=== PATIENT | male | born 1985 | race Caucasian/White ===

== ENCOUNTER 2018-05-11 13:24 | Emergency (ER) | payer BC, MEDICARE, MEDICAID ==
[~2018-05-11] VITALS: Ht 175.3 cm; Wt 123.5 kg
[~2018-05-11 13:24] MED LIST: QUET50TA PO
[2018-05-11 13:26] VITALS: BP 129/66
--- NOTE | 2018-05-11 13:34 | NUR ---
IMELDA BLOUNT INFORMED OF PT S/S NO STROKE SYMPTOMS, POSSIBLE BELLS PALSY
[2018-05-11] MEDS ORDERED: PRED20TA PO (15:03)
== END 2018-05-11 15:25 | disposition home or self-care (01) ==
LOC: ER 13:24
DX: G51.0 Bell's palsy (principal); Z91.013 Allergy to seafood; Z79.899 Other long term (current) drug therapy
CPT/HCPCS: 99283

== ENCOUNTER 2018-05-31 07:34 | Emergency (ER) | payer BC, MEDICARE, MEDICAID ==
[~2018-05-31] VITALS: Ht 175.3 cm; Wt 121.0 kg
[2018-05-31] MEDS ORDERED: normal saline 1000ML IV soln IVB ONE ×2 (07:50→10:00)
[2018-05-31] MEDS ORDERED: morphine 4 MG/ML inj SYRINge IV PRN (07:50)
[2018-05-31] MEDS ORDERED: ondansetron/PF 4mg/2ml inj IV ONE (07:50)
[2018-05-31] MEDS ORDERED: LORazepam 2 mg/ml vial IV ONE ×2 (08:05→10:00)
[2018-05-31] MEDS ORDERED: meclizine 12.5mg tablet PO ONE (08:05)
[2018-05-31 08:10] LABS: BASOPHILS # (AUTO) 0.1 X10'3 (0-0.2); BASOPHILS % (AUTO) 0.4 % (0-1); EOSINOPHILS % (AUTO) 0.3 % (0-6); HEMATOCRIT 45.5 % (42.0-52.0); HEMOGLOBIN 15.3 g/dl (14.0-17.9); LYMPHOCYTES # (AUTO) 1.5 X10'3 (1.1-4.8); LYMPHOCYTES % (AUTO) 12.1 % (21-51); MEAN CORPUSCULAR HEMOGLOBIN 28.2 PG (27.0-31.0); MEAN CORPUSCULAR HGB CONC 33.6 g/dL (33.0-36.5); MEAN CORPUSCULAR VOLUME 83.8 FL (78-98); MEAN PLATELET VOLUME 8.1 FL (7.4-10.4); MONOCYTES # (AUTO) 0.7 X10'3 (0-0.9); MONOCYTES % (AUTO) 5.6 % (2-12); NEUTROPHILS # (AUTO) 10.1 X10'3 (1.8-7.7); NEUTROPHILS % (AUTO) 81.6 % (42-75); PLATELET COUNT 348 X10'3 (140-440); RED BLOOD COUNT 5.42 X10'6 (4.70-6.10); RED CELL DISTRIBUTION WIDTH 14.4 % (11.5-14.5); WHITE BLOOD COUNT 12.4 X10'3 (4.5-11.0)
[2018-05-31 08:37] LABS: ALANINE AMINOTRANSFERASE 47 U/L (12-78); ALBUMIN 4.4 G/DL (3.4-5.0); ALBUMIN/GLOBULIN RATIO 1.1 (1.1-1.5); ALKALINE PHOSPHATASE 81 IU/L (46-116); ANION GAP 11 (8-16); ASPARTATE AMINO TRANSFERASE 19 U/L (10-37); BILIRUBIN,TOTAL 0.9 MG/DL (0.1-1.0); BLOOD UREA NITROGEN 13 MG/DL (7-18); BUN/CREATININE RATIO 11.9 (5.4-32.0); CALCIUM 9.8 MG/DL (8.5-10.1); CHLORIDE 105 MMOL/L (99-107); CREATININE 1.09 MG/DL (0.60-1.10); GLUCOSE 150 MG/DL (70-104); LIPASE 146 U/L (73-393); POTASSIUM 3.8 MMOL/L (3.5-5.1); PROTHROMBIN TIME 10.2 SECONDS (9.0-12.0); SODIUM 141 MMOL/L (135-145); TOTAL CARBON DIOXIDE 24.9 MMOL/L (24-32); TOTAL PROTEIN 8.3 G/DL (6.4-8.2); eGFR 77 ML/MIN
[2018-05-31] MEDS ORDERED: ONDA4TAB12 PO (09:18)
[2018-05-31] MEDS ORDERED: MECL12.584 PO (09:18)
[2018-05-31] MEDS ORDERED: proCHLORperazine 10 MG/2 ml inj IV ONE (09:35)
--- NOTE | 2018-05-31 10:26 | NUR ---
PT NOT READY FOR DC DUE TO VOMITING AND DRY HEAVING, AWARE, ORDERS RECEIVED AND ADMINISTERED. PT RESTING ON GURNEY WITH EYES CLOSED.
[2018-05-31 10:30] LABS: CLARITY,URINE CLEAR (Clear); COLOR,URINE YELLOW (Yellow); GLUCOSE, URINE NEGATIVE (Neg); KETONES,URINE 15 mg/dl (Neg); LEUKOCYTE ESTERASE ,URINE NEGATIVE (Neg); NITRITES, URINE NEGATIVE (Neg); OCCULT BLOOD,URINE NEGATIVE (Neg); PROTEIN,URINE TRACE mg/dl (Neg); UROBILINOGEN,URINE 0.2 E.U/dL (0.2-1.0)
[2018-05-31 10:34] LABS: UA COLLECTION TYPE URINAL
[2018-05-31 10:38] LABS: BACTERIA,URINE NONE SEEN /HPF (Neg); RBC,URINE NONE SEEN /HPF (0-2); SQUAMOUS EPITHELIAL CELL,UR NONE SEEN /LPF (FEW); WBC,URINE NONE SEEN /HPF (0-4)
[2018-05-31 11:29] VITALS: BP 110/72
--- NOTE | 2018-05-31 11:30 | NUR ---
PT RESTING, EYES CLOSED, NO S/S DISTRESS OR N/V
--- NOTE | 2018-05-31 12:31 | NUR ---
PT'S RIDE ARRIVES TO ROOM. PT FEELING BETTER AND READY TO GO HOME.
== END 2018-05-31 12:33 | disposition home or self-care (01) ==
LOC: ER 07:35
DX: R42 Dizziness and giddiness (principal); R11.2 Nausea with vomiting, unspecified; Z91.013 Allergy to seafood; Z79.899 Other long term (current) drug therapy
CPT/HCPCS: 36415; 80053; 80178; 81001; 83690; 85025; 85610; 96361; 96374; 96375; 96376; 99284; J0780; J2060; J2405; J7030; J8597

== ENCOUNTER 2018-09-14 02:23 | Emergency (ER) | payer BC, MEDICARE, MEDICAID ==
[~2018-09-14] VITALS: Ht 175.3 cm; Wt 125.0 kg
[~2018-09-14 02:23] MED LIST changes: +MECL12.584 PO; +ONDA4TAB12 PO
[2018-09-14] MEDS ORDERED: NEOM10DR45 OT (03:43)
[2018-09-14 03:51] VITALS: BP 123/64
== END 2018-09-14 03:53 | disposition home or self-care (01) ==
LOC: ER 02:24
DX: H60.91 Unspecified otitis externa, right ear (principal); F12.90 Cannabis use, unspecified, uncomplicated; Z91.013 Allergy to seafood; Z79.899 Other long term (current) drug therapy
CPT/HCPCS: 99283

== ENCOUNTER 2018-10-06 19:18 | Emergency (ER) | payer BC, MEDICARE, MEDICAID ==
[~2018-10-06] VITALS: Ht 175.3 cm; Wt 129.0 kg
[~2018-10-06 19:18] MED LIST changes: +NEOM10DR45 OT
[2018-10-06 19:25] VITALS: BP 136/76
[2018-10-06] MEDS ORDERED: DOXY100C43 PO (20:17)
== END 2018-10-06 20:29 | disposition home or self-care (01) ==
LOC: ER 19:19
DX: L98.9 Disorder of the skin and subcutaneous tissue, unspecified (principal); R21 Rash and other nonspecific skin eruption; F31.9 Bipolar disorder, unspecified; F12.90 Cannabis use, unspecified, uncomplicated; Z91.013 Allergy to seafood; Z79.899 Other long term (current) drug therapy
CPT/HCPCS: 99283

== ENCOUNTER 2019-01-02 12:05 | Emergency (ER) | payer BC, MEDICARE, MEDICAID ==
[~2019-01-02] VITALS: Ht 175.3 cm; Wt 127.2 kg
[~2019-01-02 12:05] MED LIST changes: -NEOM10DR45 OT
[2019-01-02 16:37] VITALS: BP 117/77
[2019-01-02] MEDS ORDERED: IBUP-1984 PO (16:37)
[2019-01-02] MEDS ORDERED: DOXY100C43 PO (16:37)
[2019-01-02] MEDS ORDERED: CefTRIAXone 250MG IM Kit w/LIDOcaine IM ONE (16:40)
== END 2019-01-02 17:16 | disposition home or self-care (01) ==
LOC: ER 12:06
DX: N50.811 Right testicular pain (principal); F31.9 Bipolar disorder, unspecified; F12.90 Cannabis use, unspecified, uncomplicated; Z91.013 Allergy to seafood; Z79.899 Other long term (current) drug therapy
CPT/HCPCS: 76870; 96372; 99284; J0696

== ENCOUNTER 2019-07-22 18:34 | Emergency (ER) | payer BC, MEDICARE, MEDICAID ==
[~2019-07-22] VITALS: Ht 175.3 cm; Wt 125.0 kg
[~2019-07-22 18:34] MED LIST changes: +MECL-184 PO; -MECL12.584 PO
[2019-07-22] MEDS ORDERED: LIDOcaine Viscous 15ml cup MM STA (18:55)
[2019-07-22] MEDS ORDERED: acetaminophen 325mg tablet PO ONE (18:55)
[2019-07-22] MEDS ORDERED: PENI500T2 PO (19:01)
[2019-07-22 19:11] VITALS: BP 146/97
== END 2019-07-22 19:13 | disposition home or self-care (01) ==
LOC: ER 18:35
DX: J02.9 Acute pharyngitis, unspecified (principal); F41.9 Anxiety disorder, unspecified; F32.9 Major depressive disorder, single episode, unspecified; F12.90 Cannabis use, unspecified, uncomplicated; Z88.8 Allergy status to other drugs, medicaments and biological substances; Z79.899 Other long term (current) drug therapy
CPT/HCPCS: 87880; 99283

== ENCOUNTER 2019-07-24 04:51 | Emergency (ER) | payer BC, MEDICARE, MEDICAID ==
[~2019-07-24] VITALS: Ht 175.3 cm; Wt 127.3 kg
[~2019-07-24 04:51] MED LIST changes: +PENI500T2 PO
[2019-07-24] MEDS ORDERED: dexamethasone 0.5 mg/5ml unit-dose oral solution PO STA (05:25)
[2019-07-24] MEDS ORDERED: ondansetron 4mg rapidly disintigrating tab PO ONE (05:25)
[2019-07-24] MEDS ORDERED: amoxicillin 250MG/5ML oral suspension 80ML PO ONE (05:25)
[2019-07-24] MEDS ORDERED: dexamethasone sod phosphate 10mg/ml inj PO STA (05:28)
[2019-07-24] MEDS ORDERED: AMO250L PO (05:29)
[2019-07-24] MEDS ORDERED: ONDA8TAB6 PO (05:29)
[2019-07-24 05:50] VITALS: BP 133/79
== END 2019-07-24 05:52 | disposition home or self-care (01) ==
LOC: ER 04:51
DX: J02.0 Streptococcal pharyngitis (principal); B95.5 Unspecified streptococcus as the cause of diseases classified elsewhere; R11.10 Vomiting, unspecified; F31.9 Bipolar disorder, unspecified; F12.90 Cannabis use, unspecified, uncomplicated; Z91.013 Allergy to seafood; Z79.899 Other long term (current) drug therapy
CPT/HCPCS: 99284; J1100

== ENCOUNTER 2020-01-12 19:08 | Emergency (ER) | payer MEDICARE, MEDICAID ==
[~2020-01-12] VITALS: Ht 175.3 cm; Wt 133.3 kg
[~2020-01-12 19:08] MED LIST changes: +ONDA8TAB6 PO; -PENI500T2 PO
[2020-01-12 19:12] VITALS: BP 144/74
[2020-01-12 21:49] LABS: CLARITY,URINE CLEAR (Clear); COLOR,URINE YELLOW (Yellow); GLUCOSE, URINE NEGATIVE (Neg); KETONES,URINE NEGATIVE (Neg); LEUKOCYTE ESTERASE ,URINE NEGATIVE (Neg); NITRITES, URINE NEGATIVE (Neg); OCCULT BLOOD,URINE NEGATIVE (Neg); PH,URINE 5.5 (4.8-8.0); PROTEIN,URINE NEGATIVE (Neg); UROBILINOGEN,URINE 0.2 E.U/dL (0.2-1.0)
[2020-01-12] MEDS ORDERED: ketorolac tromethamine 15mg/ml inj. IM ONE (21:50)
[2020-01-12 21:59] LABS: UA COLLECTION TYPE CLN CATCH MIDSTREAM
== END 2020-01-13 00:43 | disposition home or self-care (01) ==
LOC: ER 19:09
DX: N50.811 Right testicular pain (principal); F12.90 Cannabis use, unspecified, uncomplicated; Z91.013 Allergy to seafood
CPT/HCPCS: 74176; 76870; 81003; 93976; 96372; 99285; J1885

== ENCOUNTER 2020-02-02 08:11 | Emergency (ER) | payer MEDICARE, MEDICAID ==
[~2020-02-02] VITALS: Ht 175.3 cm; Wt 133.5 kg
[2020-02-02] MEDS ORDERED: ketorolac trometh inj. 60 MG/2 ML VIAL IM ONE (08:35)
[2020-02-02] MEDS ORDERED: HYDROcodone/acetaminophen 10/325mg tab PO ONE (08:35)
[2020-02-02] MEDS ORDERED: diphenhydrAMINE 25mg capsule PO ONE (08:45)
--- NOTE | 2020-02-02 08:55 | NUR ---
ADMIN MEDICATIONS ORDERED. US TECH IN ROOM NOW FOR PROCEDURE TEST.
[2020-02-02] MEDS ORDERED: HYDR-4353 PO (09:32)
[2020-02-02 09:49] LABS: CLARITY,URINE CLEAR (Clear); COLOR,URINE YELLOW (Yellow); GLUCOSE, URINE NEGATIVE (Neg); KETONES,URINE NEGATIVE (Neg); LEUKOCYTE ESTERASE ,URINE NEGATIVE (Neg); NITRITES, URINE NEGATIVE (Neg); OCCULT BLOOD,URINE NEGATIVE (Neg); PH,URINE 6.5 (4.8-8.0); PROTEIN,URINE NEGATIVE (Neg); UROBILINOGEN,URINE 0.2 E.U/dL (0.2-1.0)
[2020-02-02 09:52] LABS: UA COLLECTION TYPE VOIDED
== END 2020-02-02 10:04 | disposition home or self-care (01) ==
LOC: ER 08:12
DX: N50.811 Right testicular pain (principal); N50.3 Cyst of epididymis; F12.90 Cannabis use, unspecified, uncomplicated; Z91.013 Allergy to seafood
CPT/HCPCS: 76870; 81003; 93976; 96372; 99284; J1885; Q0163

== ENCOUNTER 2020-11-27 20:34 | Emergency (ER) | payer MEDICARE, MEDICAID ==
[~2020-11-27] VITALS: Ht 175.3 cm; Wt 129.5 kg
[~2020-11-27 20:34] MED LIST changes: -MECL-184 PO; +MECL-231 PO
[2020-11-27 22:10] VITALS: BP 162/109
[2020-11-27] MEDS ORDERED: dexamethasone 4mg tablet PO ONE (23:20)
[2020-11-27] MEDS ORDERED: ibuprofen tablet 400 MG TABLET PO ONE (23:20)
[2020-11-27] MEDS ORDERED: diphenhydrAMINE 25 MG/10 ML UD oral solution PO ONE (23:20)
[2020-11-27] MEDS ORDERED: DIPH-518 PO (23:33)
[2020-11-27] MEDS ORDERED: IBUP-1984 PO (23:35)
== END 2020-11-28 00:08 | disposition home or self-care (01) ==
LOC: ER 20:35
DX: J06.9 Acute upper respiratory infection, unspecified (principal); H92.01 Otalgia, right ear; F12.90 Cannabis use, unspecified, uncomplicated; Z91.013 Allergy to seafood; Z79.899 Other long term (current) drug therapy
CPT/HCPCS: 99282

== ENCOUNTER 2020-12-03 14:45 | Emergency (ER) | payer MEDICARE, MEDICAID ==
[~2020-12-03] VITALS: Ht 175.3 cm; Wt 129.6 kg
[~2020-12-03 14:45] MED LIST changes: +DIPH-518 PO; +IBUP-1984 PO
[2020-12-03 15:00] VITALS: BP 139/76
[2020-12-03] MEDS ORDERED: PENI500T2 PO (15:11)
== END 2020-12-03 15:20 | disposition home or self-care (01) ==
LOC: ER 14:47
DX: J02.9 Acute pharyngitis, unspecified (principal); H92.03 Otalgia, bilateral; R50.9 Fever, unspecified; F31.9 Bipolar disorder, unspecified; F12.90 Cannabis use, unspecified, uncomplicated; Z88.8 Allergy status to other drugs, medicaments and biological substances; Z79.2 Long term (current) use of antibiotics; Z79.899 Other long term (current) drug therapy
CPT/HCPCS: 99283

== ENCOUNTER 2021-04-30 15:11 | Emergency (ER) | payer MEDICARE, MEDICAID ==
[~2021-04-30] VITALS: Ht 175.3 cm; Wt 86.4 kg
[~2021-04-30 15:11] MED LIST changes: -IBUP-1984 PO
[2021-04-30 15:58] VITALS: BP 138/84
[2021-04-30] MEDS ORDERED: AMOX875T2 PO (17:41)
== END 2021-04-30 17:49 | disposition home or self-care (01) ==
LOC: ER 15:13
DX: H66.91 Otitis media, unspecified, right ear (principal); H92.03 Otalgia, bilateral; F31.9 Bipolar disorder, unspecified; F12.90 Cannabis use, unspecified, uncomplicated; Z88.8 Allergy status to other drugs, medicaments and biological substances; Z79.2 Long term (current) use of antibiotics; Z79.899 Other long term (current) drug therapy
CPT/HCPCS: 99283

== ENCOUNTER 2021-05-05 15:26 | Emergency (ER) | payer MEDICARE, MEDICAID ==
[~2021-05-05] VITALS: Ht 175.3 cm; Wt 86.8 kg
[~2021-05-05 15:26] MED LIST changes: +AMOX875T2 PO
[2021-05-05 15:51] VITALS: BP 156/92
[2021-05-05] MEDS ORDERED: FLUT16SP2 BOTHNARES (16:28)
[2021-05-05] MEDS ORDERED: LEVO500T90 PO (16:28)
== END 2021-05-05 16:37 | disposition home or self-care (01) ==
LOC: ER 15:27
DX: H66.91 Otitis media, unspecified, right ear (principal); H92.01 Otalgia, right ear; F31.9 Bipolar disorder, unspecified; F12.90 Cannabis use, unspecified, uncomplicated; Z88.8 Allergy status to other drugs, medicaments and biological substances; Z79.2 Long term (current) use of antibiotics; Z79.899 Other long term (current) drug therapy
CPT/HCPCS: 99283

== ENCOUNTER 2022-08-19 14:31 | Emergency (ER) | payer MEDICARE, MEDICAID ==
[~2022-08-19] VITALS: Ht 175.3 cm; Wt 120.5 kg
[~2022-08-19 14:31] MED LIST changes: +FLUT16SP2 BOTHNARES
[2022-08-19 15:18] VITALS: BP 126/84
[2022-08-19] MEDS ORDERED: OFLO5DRO5 RIGHT EAR ×3 (15:52→15:53)
[2022-08-19] MEDS ORDERED: AMOX-580 PO ×3 (15:52→15:53)
== END 2022-08-19 16:05 | disposition home or self-care (01) ==
LOC: ER 14:31
DX: H60.8X1 Other otitis externa, right ear (principal); F31.9 Bipolar disorder, unspecified; F12.10 Cannabis abuse, uncomplicated; Z79.899 Other long term (current) drug therapy; Z91.013 Allergy to seafood
CPT/HCPCS: 99283

== ENCOUNTER 2022-08-30 11:09 | Emergency (ER) | payer MEDICARE, MEDICAID ==
[~2022-08-30] VITALS: Ht 175.3 cm; Wt 118.0 kg
[~2022-08-30 11:09] MED LIST changes: +AMOX-580 PO; +OFLO5DRO5 RIGHT EAR
[2022-08-30 11:22] VITALS: BP 145/85
[2022-08-30] MEDS ORDERED: OFLO5DRO5 LEFT EAR (12:00)
[2022-08-31] MEDS ORDERED: AMOX500C2 PO (04:25)
== END 2022-08-31 07:02 | disposition home or self-care (01) ==
LOC: ER 11:09
DX: H60.92 Unspecified otitis externa, left ear (principal); F31.9 Bipolar disorder, unspecified; F12.90 Cannabis use, unspecified, uncomplicated; Z91.013 Allergy to seafood
CPT/HCPCS: 99283

== ENCOUNTER 2022-08-31 01:42 | Emergency (ER) | payer MEDICARE, MEDICAID ==
[~2022-08-31] VITALS: Ht 175.3 cm; Wt 115.0 kg
[~2022-08-31 01:42] MED LIST changes: +OFLO5DRO5 LEFT EAR
[2022-08-31 01:49] VITALS: BP 154/94
[2022-08-31] MEDS ORDERED: acetaminophen 325mg tablet PO ONE (04:25)
[2022-08-31] MEDS ORDERED: AMOX500C2 PO (04:25)
[2022-08-31] MEDS ORDERED: amoxicillin 250mg capsule PO ONE (04:25)
--- NOTE | 2022-08-31 04:35 | NUR ---
po meds x2 given
== END 2022-08-31 04:36 | disposition home or self-care (01) ==
LOC: ER 01:43
DX: H60.8X2 Other otitis externa, left ear (principal); F31.9 Bipolar disorder, unspecified; Z91.018 Allergy to other foods; Z79.899 Other long term (current) drug therapy
CPT/HCPCS: 99283

== ENCOUNTER 2023-04-12 09:43 | Emergency (ER) | payer MEDICARE, MEDICAID ==
[~2023-04-12] VITALS: Ht 175.3 cm; Wt 129.1 kg
[2023-04-12 10:17] LABS: BASOPHILS # (AUTO) 0.1 X10'3 (0-0.2); EOSINOPHILS # (AUTO) 0.3 X10'3 (0-0.9); EOSINOPHILS % (AUTO) 3.2 % (0-6); HEMATOCRIT 50.7 % (42.0-52.0); HEMOGLOBIN 16.8 g/dl (14.0-17.9); LYMPHOCYTES # (AUTO) 1.5 X10'3 (1.1-4.8); MEAN CORPUSCULAR HEMOGLOBIN 30.8 PG (27.0-31.0); MEAN CORPUSCULAR HGB CONC 33.2 g/dL (33.0-36.5); MEAN CORPUSCULAR VOLUME 92.9 FL (78-98); MEAN PLATELET VOLUME 8.4 FL (7.4-10.4); MONOCYTES # (AUTO) 0.5 X10'3 (0-0.9); MONOCYTES % (AUTO) 6.1 % (2-12); NEUTROPHILS # (AUTO) 6.5 X10'3 (1.8-7.7); NEUTROPHILS % (AUTO) 72.7 % (42-75); PLATELET COUNT 259 X10'3 (140-440); RED BLOOD COUNT 5.45 X10'6 (4.70-6.10); RED CELL DISTRIBUTION WIDTH 14.6 % (11.5-14.5); WHITE BLOOD COUNT 8.9 X10'3 (4.5-11.0)
[2023-04-12 10:25] LABS: BILIRUBIN,URINE NEGATIVE (Neg); CLARITY,URINE CLEAR (Clear); COLOR,URINE YELLOW (Yellow); GLUCOSE, URINE NEGATIVE (Neg); KETONES,URINE NEGATIVE (Neg); LEUKOCYTE ESTERASE ,URINE NEGATIVE (Neg); NITRITES, URINE NEGATIVE (Neg); OCCULT BLOOD,URINE NEGATIVE (Neg); PH,URINE 6.5 (4.8-8.0); PROTEIN,URINE NEGATIVE (Neg); UROBILINOGEN,URINE 0.2 E.U/dL (0.2-1.0)
[2023-04-12 10:31] LABS: UA COLLECTION TYPE CLN CATCH MIDSTREAM
[2023-04-12 10:58] LABS: ALANINE AMINOTRANSFERASE 73 U/L (12-78); ALBUMIN 3.7 G/DL (3.4-5.0); ALKALINE PHOSPHATASE 76 IU/L (46-116); ANION GAP 7 (8-16); ASPARTATE AMINO TRANSFERASE 26 U/L (10-37); BILIRUBIN,TOTAL 1.1 MG/DL (0.1-1.0); BLOOD UREA NITROGEN 8 MG/DL (7-18); CALCIUM 8.7 MG/DL (8.5-10.1); CHLORIDE 102 MMOL/L (99-107); CREATININE 1.15 MG/DL (0.60-1.10); GLUCOSE 179 MG/DL (70-104); LIPASE 47 U/L (16-77); POTASSIUM 4.2 MMOL/L (3.5-5.1); SODIUM 139 MMOL/L (135-145); TOTAL CARBON DIOXIDE 29.8 MMOL/L (24-32); TOTAL PROTEIN 7.5 G/DL (6.4-8.2); eCRCL 86 ML/MIN; eGFR 71 ML/MIN
[2023-04-12] MEDS: ketorolac trometh inj. 60 MG/2 ML VIAL IM ONE (11:37)
[2023-04-12] MEDS ORDERED: LIDO700A32 TOP (11:47)
[2023-04-12] MEDS ORDERED: CYCL-1 PO (11:47)
[2023-04-12 12:07] VITALS: BP 107/71; PULSE 83; RESP 16; TEMP 98.6; O2SAT 93
== END 2023-04-12 12:10 | disposition home or self-care (01) ==
LOC: ER 09:43
DX: M54.9 Dorsalgia, unspecified (principal); R73.9 Hyperglycemia, unspecified; F32.A Depression, unspecified; F12.90 Cannabis use, unspecified, uncomplicated
CPT/HCPCS: 36415; 74176; 80053; 81003; 83690; 85025; 96372; 99285; J1885

== ENCOUNTER 2023-09-14 13:17 | Emergency (ER) | payer MEDICARE, MEDICAID ==
[~2023-09-14] VITALS: Ht 175.3 cm; Wt 138.0 kg
[~2023-09-14 13:17] MED LIST changes: +CYCL-1 PO; +LIDO700A32 TOP
[2023-09-14] MEDS ORDERED: AMOX-117 PO (13:55)
[2023-09-14 14:10] VITALS: BP 141/93; PULSE 89; RESP 18; TEMP 98.9; O2SAT 95
== END 2023-09-14 14:14 | disposition home or self-care (01) ==
LOC: ER 13:18
DX: H66.93 Otitis media, unspecified, bilateral (principal); F31.9 Bipolar disorder, unspecified; F12.90 Cannabis use, unspecified, uncomplicated; Z91.013 Allergy to seafood; Z79.2 Long term (current) use of antibiotics; Z79.899 Other long term (current) drug therapy
CPT/HCPCS: 99283

== ENCOUNTER 2024-03-28 13:38 | Emergency (ER) | payer MEDICARE, MEDICAID ==
[~2024-03-28] VITALS: Ht 175.3 cm; Wt 132.4 kg
[~2024-03-28 13:38] MED LIST changes: +ONDA-243 PO; -ONDA4TAB12 PO
[2024-03-28] MEDS ORDERED: AMOX500C2 PO (14:12)
[2024-03-28 14:18] VITALS: BP 139/83; PULSE 60; RESP 16; TEMP 98.6; O2SAT 98
[2024-03-28] MEDS ORDERED: AMOX-117 PO (15:14)
== END 2024-03-28 14:18 | disposition home or self-care (01) ==
LOC: ER 13:39
DX: H66.91 Otitis media, unspecified, right ear (principal); F32.A Depression, unspecified; F12.90 Cannabis use, unspecified, uncomplicated; Z91.018 Allergy to other foods; Z79.899 Other long term (current) drug therapy
CPT/HCPCS: 99283